=== PATIENT | male | born 1990 | race Caucasian/White ===

== ENCOUNTER 2017-12-10 03:33 | Emergency (ER) | payer OTHER ==
[~2017-12-10] VITALS: Ht 172.7 cm; Wt 99.8 kg
[2017-12-10 03:36] VITALS: Ht 172.7 cm; Wt 99.8 kg
[2017-12-10] MEDS ORDERED: OMEPRAZOLE40 MG PO (03:38)
[2017-12-10] MEDS ORDERED: CLONAZEPAM1 MG/TAB PO (03:38)
[2017-12-10] MEDS ORDERED: LOMOTIL TABLET1 TAB PO (03:38)
[2017-12-10] MEDS ORDERED: MIRAPEX1 MG PO (03:39)
[2017-12-10] MEDS ORDERED: SINGULAIR10 MG PO (03:39)
[2017-12-10] MEDS ORDERED: NEURONTIN800 MG (03:40)
[2017-12-10 05:06] LABS: BASOPHILS 0.2 % (0-2); EOSINOPHILS 0.9 % (0-7); HEMATOCRIT 42.4 % (42.0-54.0); HEMOGLOBIN 14.1 g/dL (13.5-17.5); IMMATURE GRANULOCYTES 0.3 % (0-5); LYMPHOCYTES 17.8 % (15-50); MCH 28.6 pg (26.0-34.0); MCHC 33.3 g/dL (31.0-37.0); MEAN PLATELET VOLUME 12.2 fL (7.4-10.4); MONOCYTES 5.3 % (2-11); NEUTROPHILS 75.5 % (40-80); PLATELET COUNT 172 10x3/uL (130-400); RBC 4.93 10x6/uL (4.20-6.10); RDW 14.6 % (11.5-14.5); WBC 15.4 10x3/uL (4.8-10.8)
[2017-12-10 05:51] LABS: ALBUMIN 3.7 g/dL (3.4-5.0); ALKALINE PHOSPHATASE 59 U/L (46-116); ALT (SGPT) 39 U/L (10-68); BILIRUBIN - TOTAL 0.32 mg/dL (0.2-1.3); CALC OSMOLALITY 283 mosm/kg (275-300); CALCIUM 8.4 mg/dL (8.5-10.1); CARBON DIOXIDE 32.3 mmol/L (21.0-32.0); CHLORIDE - SERUM 105 mmol/L (98-107); CREATINE KINASE 389 UL (21-232); GLUCOSE 107 mg/dL (74-106); PHOSPHOROUS 1.9 mg/dL (2.5-4.9); PROTEIN - SERUM 7.1 g/dL (6.4-8.2); SODIUM 143 mmol/L (136-145); UREA NITROGEN 11 mg/dL (7-18); eGFR NON AFRICAN AMERICAN > 90 mL/min (90-120)
[2017-12-10 05:53] LABS: C-REACTIVE PROTEIN < 0.2 mg/dL (0.0-0.9); POTASSIUM - SERUM 2.8 mmol/L (3.5-5.1)
[2017-12-10 07:55] LABS: APPEARANCE CLEAR (CLEAR); BILIRUBIN NEGATIVE (NEGATIVE); COLOR YELLOW (YELLOW); GLUCOSE 50 mg/dL (NEGATIVE); KETONE NEGATIVE (NEGATIVE); NITRITE NEGATIVE (NEGATIVE); PROTEIN NEGATIVE (NEGATIVE); UROBILINOGEN NORMAL (NORMAL)
[2017-12-10 07:56] LABS: BACTERIA FEW /hpf (NONE SEEN); CALCIUM OXALATE CRYSTALS 0-5 /hpf (NONE SEEN); EPITHELIAL CELLS 0-5 /hpf (0-5); RED CELLS - URINE 0-5 /hpf (0-5); WHITE CELLS - URINE 0-5 /hpf (0-5)
[2017-12-10 08:02] LABS: UDS - AMPHET NEGATIVE QUAL (NEGATIVE); UDS - BARB NEGATIVE QUAL (NEGATIVE); UDS - BENZO NEGATIVE QUAL (NEGATIVE); UDS - COCAINE NEGATIVE QUAL (NEGATIVE); UDS - OPIATE NEGATIVE QUAL (NEGATIVE); UDS - PCP NEGATIVE QUAL (NEGATIVE); UDS - THC NEGATIVE QUAL (NEGATIVE)
[2017-12-10] MEDS ORDERED: CYCLOBENZAPRINE10 MG PO (08:07)
[2017-12-10 08:54] VITALS: BP 144/89
== END 2017-12-10 08:20 | disposition home or self-care (01) ==
LOC: D.ER 03:33
PROVIDERS: Family Medicine
DX: E87.6 Hypokalemia (principal); M62.830 Muscle spasm of back; F17.200 Nicotine dependence, unspecified, uncomplicated

== ENCOUNTER 2018-09-05 12:18 | Emergency (ER) | payer MEDICAID ==
[~2018-09-05] VITALS: Ht 172.7 cm; Wt 103.2 kg
[~2018-09-05 12:18] MED LIST: CLONAZEPAM1 MG/TAB PO; CYCLOBENZAPRINE10 MG PO; LOMOTIL TABLET1 TAB PO; MIRAPEX1 MG PO; NEURONTIN800 MG; OMEPRAZOLE40 MG PO; SINGULAIR10 MG PO
[2018-09-05 12:29] VITALS: Ht 172.7 cm; Wt 103.2 kg
[2018-09-05] MEDS ORDERED: VOLTAREN75 MG PO (16:20)
[2018-09-05] MEDS ORDERED: BACLOFEN20 M1 PO (16:20)
[2018-09-05 16:40] VITALS: BP 157/100
== END 2018-09-05 16:40 | disposition home or self-care (01) ==
LOC: D.ER 12:18
DX: M62.830 Muscle spasm of back (principal); M54.6 Pain in thoracic spine

== ENCOUNTER 2018-09-30 01:02 | Emergency (ER) | payer OTHER ==
[~2018-09-30] VITALS: Ht 172.7 cm; Wt 104.5 kg
[~2018-09-30 01:02] MED LIST changes: +BACLOFEN20 M1 PO; +VOLTAREN75 MG PO
[2018-09-30 01:10] VITALS: Ht 172.7 cm; Wt 104.5 kg
[2018-09-30] MEDS ORDERED: AMOXICILLIN500 M1 PO (01:18)
[2018-09-30 01:34] VITALS: BP 188/94
== END 2018-09-30 01:34 | disposition home or self-care (01) ==
LOC: D.ER 01:02
DX: K08.89 Other specified disorders of teeth and supporting structures (principal)

== ENCOUNTER 2018-10-24 22:58 | Emergency (ER) | payer OTHER ==
[~2018-10-24] VITALS: Ht 172.7 cm; Wt 101.4 kg
[~2018-10-24 22:58] MED LIST changes: +AMOXICILLIN500 M1 PO
[2018-10-24 23:06] VITALS: Ht 172.7 cm; Wt 101.4 kg
[2018-10-24] MEDS ORDERED: ADDERALL 20 MG20 M1 PO (23:07)
[2018-10-24] MEDS ORDERED: LISINOPRIL20 MG PO (23:08)
[2018-10-24 23:44] LABS: BASOPHILS 0.3 % (0-2); EOSINOPHILS 1.5 % (0-7); HEMATOCRIT 42.1 % (42.0-54.0); HEMOGLOBIN 14.3 g/dL (13.5-17.5); IMMATURE GRANULOCYTES 0.3 % (0-5); LYMPHOCYTES 30.8 % (15-50); MCH 30.6 pg (26.0-34.0); MEAN PLATELET VOLUME 11.7 fL (7.4-10.4); MONOCYTES 8.6 % (2-11); NEUTROPHILS 58.5 % (40-80); RBC 4.68 10x6/uL (4.20-6.10); RDW 13.5 % (11.5-14.5)
[2018-10-24 23:48] LABS: PLATELET COUNT 223 10x3/uL (130-400)
[2018-10-24 23:59] LABS: ALBUMIN 4.1 g/dL (3.4-5.0); ANION GAP 12.9 mmol/L (8-16); BILIRUBIN - TOTAL 0.37 mg/dL (0.2-1.3); CALCIUM 8.9 mg/dL (8.5-10.1); CARBON DIOXIDE 27.8 mmol/L (21.0-32.0); CREATININE - SERUM 1.6 mg/dL (0.6-1.3); POTASSIUM - SERUM 3.7 mmol/L (3.5-5.1); PROTEIN - SERUM 7.7 g/dL (6.4-8.2)
[2018-10-25 00:23] LABS: APPEARANCE CLEAR (CLEAR); BILIRUBIN NEGATIVE (NEGATIVE); COLOR YELLOW (YELLOW); GLUCOSE NEGATIVE (NEGATIVE); KETONE NEGATIVE (NEGATIVE); NITRITE NEGATIVE (NEGATIVE); PROTEIN NEGATIVE (NEGATIVE); UROBILINOGEN NORMAL (NORMAL)
[2018-10-25 01:50] VITALS: BP 107/58
== END 2018-10-25 01:50 | disposition home or self-care (01) ==
LOC: D.ER 22:58
PROVIDERS: Family Medicine
DX: E86.0 Dehydration (principal); N17.9 Acute kidney failure, unspecified

== ENCOUNTER 2019-02-23 01:15 | Emergency (ER) | payer OTHER ==
[~2019-02-23] VITALS: Ht 172.7 cm; Wt 101.8 kg
[~2019-02-23 01:15] MED LIST changes: +ADDERALL 20 MG20 M1 PO; +LISINOPRIL20 MG PO
[2019-02-23 01:30] VITALS: Ht 172.7 cm; Wt 101.8 kg
[2019-02-23 03:00] VITALS: BP 108/76
== END 2019-02-23 03:00 | disposition home or self-care (01) ==
LOC: D.ER 01:15
DX: M79.605 Pain in left leg (principal)

== ENCOUNTER 2019-03-07 00:11 | Emergency (ER) | payer OTHER ==
[~2019-03-07] VITALS: Ht 172.7 cm; Wt 100.9 kg
[2019-03-07 00:15] VITALS: Ht 172.7 cm; Wt 100.9 kg
[2019-03-07] MEDS ORDERED: HYDROCODONE-A1 UDTA2 PO (02:58)
[2019-03-07 03:08] VITALS: BP 132/70
== END 2019-03-07 03:08 | disposition home or self-care (01) ==
LOC: D.ER 00:11
DX: S82.402A Unspecified fracture of shaft of left fibula, initial encounter for closed fracture (principal); X58.XXXA Exposure to other specified factors, initial encounter